=== PATIENT | male | born 1950 | race Caucasian/White ===

== ENCOUNTER 2017-06-12 19:54 | Emergency (ER) | payer OTHER ==
[~2017-06-12] VITALS: Ht 170.2 cm; Wt 138.8 kg
[2017-06-12] MEDS ORDERED: LISI-170 PO (20:33)
[2017-06-12 22:07] LABS: HEMATOCRIT 40.8 % (39.2-51.8); HEMOGLOBIN 13.7 g/dL (13.7-18.0); WHITE BLOOD COUNT 8.3 x10^3/uL (3.4-10)
[2017-06-12 22:09] LABS: ASPARTATE AMINO TRANSFERASE 20 U/L (15-37); BLOOD UREA NITROGEN 12 mg/dL (7-18)
[2017-06-12 22:14] LABS: IS PT STATUS REG ER OR PRE ER? YES
[2017-06-12 22:47] VITALS: BP 137/87
== END 2017-06-12 22:51 | disposition home or self-care (01) ==
LOC: ED 22:45
DX: R42 Dizziness and giddiness (principal); I10 Essential (primary) hypertension
CPT/HCPCS: 36415; 71010; 80053; 84484; 85025; 93005; 99285